=== PATIENT | female | born 2000 | race Caucasian/White ===

== ENCOUNTER 2023-05-24 18:17 | Emergency (ER) | payer OTHER ==
[~2023-05-24] VITALS: Ht 162.6 cm; Wt 56.7 kg
--- NOTE | 2023-05-24 18:39 | NUR ---
"today was having full body convulsions. During this episode, " I'm usually AWKE. NOW MY WHOLE BODY FEEL CRAMPING. HX OF TICS/SEIZURES(?)" SHE MENTIONS SHE IS ON [id number] ON AND OFF . MEDS ARE HYDROXYZINE JULIO,AND ATOMOXETINE
--- NOTE | 2023-05-24 18:48 | NUR ---
DR MARCELINO AT BEDSIDE FOR EVAL
[2023-05-24] MEDS ORDERED: LEVETIRACETAM (250 MG) 250 MG TABLET PO ONE ×2 (19:00→19:11)
--- NOTE | 2023-05-24 19:05 | NUR ---
URINE COLLECTED, SENT TO LAB
--- NOTE | 2023-05-24 19:06 | NUR ---
HE PREFERS TO BE CALLED [facility]
--- NOTE | 2023-05-24 19:06 | NUR ---
ADAM COLLECTED, SENT TO LAB
--- NOTE | 2023-05-24 19:19 | NUR ---
ENDORSED TO EDILBERTO FOR IZABEL
[2023-05-24 19:29] LABS: CALCIUM, SERUM 9.4 mg/dL (8.5-10.1); CARBON DIOXIDE 27 mmol/L (21-32); CHLORIDE 104 mmol/L (98-107); CREATININE 0.7 mg/dL (0.6-1.3); GLUCOSE 85 mg/dL (74-106); POTASSIUM 3.6 mmol/L (3.5-5.1); SODIUM SERUM 141 mmol/L (136-145); UREA NITROGEN, BLOOD 15 mg/dL (7-18)
[2023-05-24 19:36] LABS: ALANINE AMINOTRANSFERASE 15 U/L (12-78); ALBUMIN 4.5 g/dL (3.4-5.0); ALCOHOL, BLOOD < 3 mg/dL (0-10); ALKALINE PHOSPHATASE 61 U/L (46-116); ASPARTATE AMINOTRANSFERASE 9 U/L (15-37); BILIRUBIN,DIRECT 0.2 mg/dL (0.0-0.2); BILIRUBIN,TOTAL 1.2 mg/dL (0.2-1.0)
[2023-05-24 19:41] LABS: THYROID STIMULATING HORMONE 0.535 uIU/mL (0.358-3.74)
[2023-05-24 19:43] LABS: BASOPHILS # (AUTO) 0.1 K/uL (0.0-0.2); BASOPHILS % (AUTO) 0.9 % (0.0-2.0); EOSINOPHILS % (AUTO) 4.8 % (0.0-6.0); HEMATOCRIT 44 % (33-45); HEMOGLOBIN 14.5 g/dL (11.5-14.8); LYMPHOCYTES # (AUTO) 2.8 K/uL (0.8-4.8); LYMPHOCYTES % (AUTO) 31.2 % (20.0-44.0); MEAN CORPUSCULAR HGB CONC 33 g/dl (31.0-36.0); MEAN CORPUSCULAR VOLUME 87 fL (82-100); MONOCYTES # (AUTO) 0.6 K/uL (0.1-1.30); NEUTROPHILS # (AUTO) 5.2 K/uL (1.8-8.9); NEUTROPHILS % (AUTO) 57.1 % (43.0-81.0); PLATELET COUNT (AUTO) 323 K/uL (150-450); RED BLOOD CELL COUNT(AUTO) 5.03 MIL/uL (4.0-5.2); WHITE BLOOD COUNT (AUTO) 9.1 K/uL (4.3-11.0)
[2023-05-24 21:23] VITALS: BP 156/108; TEMP 98.6; O2SAT 100
--- NOTE | 2023-05-24 21:23 | NUR ---
Patient discharged to home in stable condition. Written and verbal after care instructions given. Patient verbalizes understanding of instruction.IV removed. Catheter intact and site benign. Pressure and 4x4 applied to site. No bleeding noted.
== END 2023-05-24 21:24 | disposition home or self-care (01) ==
LOC: ER 18:37
DX: R56.9 Unspecified convulsions (principal)
CPT/HCPCS: 36415; 70450-TC; 71045-TC; 80048-TC; 80076-TC; 84439-TC; 84443-TC; 84484-TC; 84703-TC; 85025-TC; 85730-TC; G0480